=== PATIENT | female | born 1980 | race Caucasian/White ===

== ENCOUNTER 2024-06-20 08:33 | Emergency (ER) | payer OTHER ==
[~2024-06-20] VITALS: Ht 167.6 cm; Wt 43.0 kg
[2024-06-20 09:10] LABS: BASO % 0.6 % (0.0-1.0); EOS # 0.1 10^3/uL (0.0-0.5); EOS % 0.9 % (0.0-3.0); HEMATOCRIT 40.6 % (36.0-47.0); HEMOGLOBIN 13.6 g/dl (12.0-15.5); LYMPH # 1.8 10^3/uL (1.5-5.0); LYMPH % 27.6 % (24.0-44.0); MEAN CORPUSCULAR HEMOGLOBIN 31.3 pg (27.0-33.0); MEAN CORPUSCULAR HGB CONC 33.5 g/dl (32.0-36.5); MEAN CORPUSCULAR VOLUME 93.5 fl (80.0-96.0); MONO # 0.5 10^3/uL (0.0-0.8); MONO % 7.5 % (2.0-8.0); NEUTROPHILS # 4.1 10^3/uL (1.5-8.5); NEUTROPHILS % 63.1 % (36.0-66.0); PLATELET COUNT, AUTOMATED 227 10^3/uL (150-450); RED BLOOD COUNT 4.34 10^6/uL (4.00-5.40); WHITE BLOOD COUNT 6.5 10^3/uL (4.0-10.0)
[2024-06-20 09:36] LABS: BLOOD UREA NITROGEN 11 MG/DL (9-23); CALCIUM LEVEL 9.6 MG/DL (8.5-10.1); CARBON DIOXIDE LEVEL 30 MMOL/L (20-31); CHLORIDE LEVEL 106 MMOL/L (98-107); CK-MB VALUE MASS < 1.0 NG/ML (<3.6); CPK CREATINE PHOSPHOKINASE 42 U/L (34-145); CREATININE FOR GFR 0.63 MG/DL (0.55-1.30); GLOMERULAR FILTRATION RATE > 90.0 (>58); GLUCOSE, FASTING 96 MG/DL (60-100); MB/CK RELATIVE INDEX 2.38 (< OR =4); SODIUM LEVEL 140 MMOL/L (136-145)
[2024-06-20] MEDS ORDERED: ISOVUE-370 76% 100ML VIAL As Ordered ONE (10:31)
[2024-06-20 10:51] LABS: CK-MB VALUE MASS < 1.0 NG/ML (<3.6)
[2024-06-20 10:56] LABS: CPK CREATINE PHOSPHOKINASE 53 U/L (34-145); MB/CK RELATIVE INDEX 1.88 (< OR =4)
[2024-06-20] MEDS ORDERED: NAPR-837 PO (11:26)
[2024-06-20 11:30] VITALS: BP 104/57; TEMP 98.4; O2SAT 99
== END 2024-06-20 11:52 | disposition home or self-care (01) ==
LOC: M ED 08:33
DX: R91.1 Solitary pulmonary nodule (principal); R51.9 Headache, unspecified; R07.89 Other chest pain; D25.9 Leiomyoma of uterus, unspecified; F17.200 Nicotine dependence, unspecified, uncomplicated; Z88.5 Allergy status to narcotic agent
CPT/HCPCS: 71045; 71275; 74177; 80048; 82550; 82553; 84484; 85025; 93005; 93041; 94760; 99284; Q9967

== ENCOUNTER 2024-10-09 07:57 | Emergency (ER) | payer OTHER ==
[~2024-10-09] VITALS: Ht 167.6 cm; Wt 43.1 kg
[~2024-10-09 07:57] MED LIST: NAPR-837 PO
[2024-10-09] MEDS: LIDOCAINE 2% 5 ML JELLY UROJET TOP ONE (10:15)
[2024-10-09 10:44] LABS: BASO # 0.1 10^3/uL (0.0-0.2); BASO % 0.7 % (0.0-1.0); EOS # 0.1 10^3/uL (0.0-0.5); EOS % 0.7 % (0.0-3.0); LYMPH # 1.9 10^3/uL (1.5-5.0); LYMPH % 27.9 % (24.0-44.0); MONO # 0.3 10^3/uL (0.0-0.8); MONO % 4.8 % (2.0-8.0); NEUTROPHILS # 4.5 10^3/uL (1.5-8.5); NEUTROPHILS % 65.6 % (36.0-66.0); PLATELET COUNT, AUTOMATED 264 10^3/uL (150-450)
[2024-10-09 10:45] LABS: KETONE, URINE AUTO RFX NEGATIVE (NEGATIVE); MUCUS, URINE RFX SMALL (NEGATIVE); NITRITE, URINE AUTO RFX NEGATIVE (NEGATIVE); RBC, URINE AUTO RFX 4 /HPF (0-3); SQUAM EPITHELIAL CELL UR AURFX 60 /HPF (0-6); TRANSITIONAL EPITHELIAL AU RFX 1 /HPF
[2024-10-09 10:47] LABS: LEUKOCYTE ESTERASE UR AUTO RFX 1+ (NEGATIVE); WBC, URINE AUTO RFX 12 /HPF (0-3)
[2024-10-09 11:10] LABS: ALT/SGPT 10 U/L (7.0-40); AST/SGOT 24 U/L (<34); CALCIUM LEVEL 9.6 MG/DL (8.5-10.1); CARBON DIOXIDE LEVEL 30 MMOL/L (20-31); CHLORIDE LEVEL 102 MMOL/L (98-107); CREATININE FOR GFR 0.64 MG/DL (0.55-1.30); GLOMERULAR FILTRATION RATE > 90.0 (>58); POTASSIUM SERUM 4.2 MMOL/L (3.5-5.1); SODIUM LEVEL 142 MMOL/L (136-145)
[2024-10-09] MEDS: BISACODYL 10 MG SUPP PR ONE (11:50)
[2024-10-09] MEDS: GASTROGRAFIN SOLUTION 30ML PO SCH (11:50)
[2024-10-09] MEDS ORDERED: ISOVUE-370 76% 100 ML VIAL As Ordered ONE (13:20)
[2024-10-09] MEDS: NS (Normal Saline) 0.9% 1,000 ML IV ONE (15:53)
[2024-10-09] MEDS ORDERED: MIRA3350 PO (16:20)
[2024-10-09] MEDS ORDERED: DULC10SU2 PR (16:20)
[2024-10-09] MEDS ORDERED: COLA100C5 PO (16:20)
[2024-10-09 16:27] VITALS: BP 109/55; TEMP 97.5; O2SAT 100
== END 2024-10-09 16:39 | disposition home or self-care (01) ==
LOC: M ED 07:57
DX: K56.41 Fecal impaction (principal); K51.219 Ulcerative (chronic) proctitis with unspecified complications; G43.909 Migraine, unspecified, not intractable, without status migrainosus; Z86.79 Personal history of other diseases of the circulatory system; F17.200 Nicotine dependence, unspecified, uncomplicated; Z88.5 Allergy status to narcotic agent
CPT/HCPCS: 51702; 74018; 74177; 80048; 80076; 81001; 83690; 85025; 87086; 96360; 99284; Q9963; Q9967